=== PATIENT | female | born 1990 | race Caucasian/White ===

== ENCOUNTER → 2019-10-27 | Outpatient (CLI) | payer BC ==
[~2019-10-27] MED LIST: MASON NATURAL325 MG; MOTRIN 600600 MG/TAB PO; NORCO 325 MG-51 TAB PO; NORCO 325 MG-7.1 TAB PO; PARAGARD T; PERCOCET 325 MG1 TA2 PO; PRENATAL1 TA1 PO; PRENATAL1 TA7 PO; PROTONIX20 MG PO; SLOW FE45 MG PO; ZOFRAN ODT4 MG PO
== END ==
LOC: ZCOL.LAB 10:30
DX: Z20.828 Contact with and (suspected) exposure to other viral communicable diseases (principal)

== ENCOUNTER 2019-12-03 10:34 | Emergency (ER) | payer BC ==
[~2019-12-03] VITALS: Ht 154.9 cm; Wt 61.4 kg
[2019-12-03 10:39] VITALS: TEMP 98.8
[2019-12-03 11:15] LABS: BASO % 0.4 % (0.0-2.0); EOS # 0.1 (0.0-0.7); EOS % 1.2 % (0-4.0); GRAN # 6.1 (1.4-6.5); GRAN % 77.6 % (42.2-75.2); HEMATOCRIT 38.5 % (37.0-47.0); HEMOGLOBIN 12.9 g/dl (12.5-16.0); LYMPH # 1.3 (1.2-3.4); LYMPH % 16.4 % (20.0-51.0); MEAN CELL VOLUME 91 fl (80.0-100.0); MEAN CORPUSCULAR HEMOGLOBIN 30 pg (27.0-31.0); MEAN CORPUSCULAR HGB CONC 34 g/dl (33.0-37.0); MEAN PLATELET VOLUME 10.4 fl (7.4-10.4); MONO # 0.3 (0.1-0.6); MONO % 4.1 % (1.7-9.3); PLATELET COUNT 206 K/mm3 (130-400); RED BLOOD COUNT 4.24 M/mm3 (4.10-5.30); REDCELL DISTRIBUTION WIDTH-CV 11.8 % (11.5-14.5)
[2019-12-03] MEDS ORDERED: PRILOSEC 20MG20 MG PO (11:17)
[2019-12-03] MEDS ORDERED: FLAGYL500 MG PO (11:18)
[2019-12-03] MEDS ORDERED: ZYRTEC 10MG10 MG PO (11:18)
[2019-12-03] MEDS ORDERED: FLONASE NASAL S16 GM NS (11:19)
[2019-12-03] MEDS ORDERED: HEATHER0.35 MG PO (11:19)
[2019-12-03] MEDS ORDERED: BUSPAR5 MG PO (11:19)
[2019-12-03 11:25] LABS: ALBUMIN 4.6 gm/dL (3.5-5.0); BILIRUBIN,TOTAL 0.6 mg/dL (0.0-1.0); CALCIUM 9.4 mg/dL (8.4-10.2); CREATININE, serum 0.65 (0.52-1.25); TOTAL PROTEIN 7.9 gm/dL (6.4-8.2)
[2019-12-03 11:54] LABS: COLLECTION METHOD CLEAN CATCH
[2019-12-03 12:02] LABS: MUCOUS Present /lpf; PH 7 (5-8); URINE APPEARANCE Clear; URINE BACTERIA None Seen /hpf; URINE BILIRUBIN Negative (NEGATIVE); URINE BLOOD Negative (NEGATIVE); URINE COLOR Amber; URINE GLUCOSE Negative (NEGATIVE); URINE KETONE Negative (NEGATIVE); URINE LEUKOCYTE ESTERASE Trace (NEGATIVE); URINE NITRATE Negative (NEGATIVE); URINE PROTEIN(semi-quant) 1+ (NEGATIVE); URINE RBC 0-2 /hpf; URINE UROBILINOGEN Negative (NEGATIVE)
[2019-12-03 12:26] VITALS: BP 118/93; PULSE 87
== END 2019-12-03 12:33 | disposition home or self-care (01) ==
LOC: COL.ER 10:34
PROVIDERS: Physician Assistant
DX: N83.209 Unspecified ovarian cyst, unspecified side (principal); Z32.02 Encounter for pregnancy test, result negative; Z90.49 Acquired absence of other specified parts of digestive tract
CPT/HCPCS: J2405

== ENCOUNTER 2020-01-07 22:02 | Emergency (ER) | payer BC ==
[~2020-01-07] VITALS: Ht 154.9 cm; Wt 59.1 kg
[~2020-01-07 22:02] MED LIST changes: +BUSPAR5 MG PO; +FLAGYL500 MG PO; +FLONASE NASAL S16 GM NS; +HEATHER0.35 MG PO; +PRILOSEC 20MG20 MG PO; +ZYRTEC 10MG10 MG PO
[2020-01-07 23:19] VITALS: BP 110/78; PULSE 74; TEMP 98.9
== END 2020-01-07 23:21 | disposition home or self-care (01) ==
LOC: COL.ER 22:02
DX: S81.812A Laceration without foreign body, left lower leg, initial encounter (principal); Z23 Encounter for immunization; Z88.2 Allergy status to sulfonamides; Z88.8 Allergy status to other drugs, medicaments and biological substances; W26.1XXA Contact with sword or dagger, initial encounter; Y92.009 Unspecified place in unspecified non-institutional (private) residence as the place of occurrence of the external cause

== ENCOUNTER → 2020-01-18 | Outpatient (CLI) | payer BC ==
[2020-01-18 16:02] VITALS: BP 108/74; PULSE 88; TEMP 98.2
== END ==
LOC: COL.ER 15:56
DX: Z48.02 Encounter for removal of sutures (principal)

== ENCOUNTER 2020-05-19 12:42 | Emergency (ER) | payer BC ==
[~2020-05-19] VITALS: Ht 154.9 cm; Wt 63.6 kg
[2020-05-19 12:56] VITALS: TEMP 97.3
[2020-05-19] MEDS ORDERED: TESSALON P100 MG/CAP PO (13:22)
[2020-05-19 13:32] VITALS: BP 122/82; PULSE 86
== END 2020-05-19 13:37 | disposition home or self-care (01) ==
LOC: COL.ER 12:42
DX: U07.1 COVID-19 (principal); Z88.2 Allergy status to sulfonamides; Z88.6 Allergy status to analgesic agent

== ENCOUNTER → 2021-07-24 | Outpatient (CLI) | payer BC ==
[~2021-07-24] MED LIST changes: +TESSALON P100 MG/CAP PO
== END ==
LOC: COL.RAD 13:37
DX: G43.109 Migraine with aura, not intractable, without status migrainosus (principal); R40.4 Transient alteration of awareness

== ENCOUNTER → 2023-07-10 | Outpatient (CLI) | payer OTHER | LOC: MC.RAD 12:44 | DX: N63.21 Unspecified lump in the left breast, upper outer quadrant (principal) ==